=== PATIENT | female | born 1960 | race Caucasian/White ===

== ENCOUNTER 2023-10-24 09:41 | Emergency (ER) | payer OTHER, SELFPAY ==
[2023-10-24] VITALS (13 sets, daily range): BP systolic 120–150; BP diastolic 73–100; BMI 22.0
--- NOTE | 2023-10-24 10:45 | ED.MUSCINJ ---
HPI-Injury
<Sean Lieberman PA-C - Last Filed: 10/25/23 08:10>
General
Chief Complaint: Musculo-Skeletal Complaint
Source: patient
Exam Limitations: none
Time Seen by Provider: 10/24/23 10:16
History of Present Illness-Injury
Initial Injury comments:
63-year-old female presents complaining of left ankle pain and swelling after stepping on a tree stump walking her dog. [place] was [place] a trail and was helped off the trail by her . No prior injury to the ankle. She is not anticoagulated. She
is healthy other than history of hypothyroidism.
Phy Exam
<Sean Lieberman PA-C - Last Filed: 10/25/23 08:10>
Physical Exam
Physical Exam:
General: Well-appearing female
Musculoskeletal exam: Left ankle swollen tender diffusely and deformed.
Vascular: Dorsalis pedis pulse left
Neurologic: Good sensation left foot
Skin: Superficial abrasion medial aspect left ankle
Injury Course
<Sean Lieberman PA-C - Last Filed: 10/25/23 08:10>
Orders/Labs/Results
Orders:
Orders
10/24/23 10:00
Ankle, left 3 view CR [CR Ankle - Left Min 3 Views ] Urgent
Comment:
Reason For Exam: fall
10/24/23 10:56
Morphine Sulfate 4 mg IV NOW STA
Ondansetron Injectable [Zofran] 4 mg IV NOW STA
10/24/23 11:27
Propofol [Diprivan] 20 ml .ROUTE .STK-MED
10/24/23 11:48
CR Ankle - Left 2 Views Urgent
Reason For Exam: post reduction
CR Knee - Left 1 Or 2 Views Urgent
Comment:
Reason For Exam: ankle fx
10/24/23 12:29
Crutches-Treatment ONCE
<Christian Catherine MD - Last Filed: 10/24/23 11:48>
Orders/Labs/Results
Orders:
Orders
10/24/23 10:00
Ankle, left 3 view CR [CR Ankle - Left Min 3 Views ] Urgent
Comment:
Reason For Exam: fall
10/24/23 10:56
Morphine Sulfate 4 mg IV NOW STA
Ondansetron Injectable [Zofran] 4 mg IV NOW STA
10/24/23 11:27
Propofol [Diprivan] 20 ml .ROUTE .STK-MED
10/24/23 11:48
CR Ankle - Left 2 Views Urgent
Reason For Exam: post reduction
CR Knee - Left 1 Or 2 Views Urgent
Comment:
Reason For Exam: ankle fx
10/24/23 12:29
Crutches-Treatment ONCE
Procedures
<Sean Lieberman PA-C - Last Filed: 10/25/23 08:10>
Moderate Sedation
ASA Risk Score: Class II
Chart and allergies reviewed: Yes
Consent for anesthesia obtained: Yes
Time out completed (validating right patient & procedure): Yes
Moderate Sedation Start Time(when first medication is given): 11:39
History of difficult intubation: No
Airway free of obstruction: Yes
Patient has a gag reflex: Yes
Patient is able to open mouth: Yes
Patient has no dentures: Yes
Patient has no loose teeth: Yes
Medication administered by Provider during Moderate Sedation: IV Propofol (mg)
Total dose administered: 100
Time drug administered: 11:39
Moderate Sedation Procedure End Time: 11:50
<Sean Lieberman PA-C - Last Filed: 10/25/23 08:10>
MDM/Problems Addressed
Differential Diagnosis Includes:
Left ankle deformity with pain after injury. Fracture versus dislocation versus both
I personally visualized x-rays of left ankle which demonstrate a dislocated trimalleolar fracture of the left ankle. This is a closed injury she is neurologically intact.
Discussed with patient treatment options. Send x-rays to orthopedics for their review. Anticipate she may need moderate sedation with reduction.
<Sean Lieberman PA-C - Last Filed: 10/25/23 08:10>
*Critical Care Note
Total Time (30-74mins, 75-104mins- exclusive of procedures): Not Applicable
<Sean Lieberman PA-C - Last Filed: 10/25/23 08:10>
Update Note
Update Note:
Initial x-rays demonstrate dislocated trimalleolar ankle fracture. Discussed with patient and orthopedics. Orthopedics in agreement with reduction. Consent obtained for moderate sedation and closed reduction. Sedation performed by emergency room
attending. Reduction performed by myself using longitudinal traction and posterior pressure. The patient was then splinted in a posterior and U splint using cast padding 3 inch OCL and Buzz bandages. Postreduction films were obtained which
demonstrate successful reduction of the ankle.
Patient recovered well from sedation. She was trained on the crutches. She was given strict nonweightbearing instructions on the left lower extremity. She is to see orthopedics tomorrow in the office
ED Attending Note
<Sean Lieberman PA-C - Last Filed: 10/25/23 08:10>
-
Portions of this chart may have been created with voice recognition software.� Occasional wrong word or��sound alike� substitutions may have occurred due to the inherent limitations of voice recognition software.
<Christian Catherine MD - Last Filed: 10/24/23 11:48>
ED Attending Note
Patient seen and examined by attending physician: Yes
ED Attending Note:
I have seen and evaluated the patient with a amni-wh-owrf encounter. I have spoken to the advance practicer provider and involved in the medical history, the physical exam, medical decision making.
Evaluation and management service: agree unless noted differently below.
Results interpretation: agree unless noted differently below.
Focused HPI: 63-year-old female presents for left ankle injury�was walking on a trail and stepped on a tree stump and suffered inversion of the ankle had immediate pain and unable to bear weight. No other injuries.
Physical exam: Awake alert, appears in mild pain distress. Left ankle with deformity, tenderness along both malleoli. Palpable DP pulse. Brisk capillary refill. Motor and sensory function intact distal left lower extremity.
Medical Decision Makin-year-old female presents with left ankle injury. X-ray confirms trimalleolar fracture. Will sedate and reduce, splint. Orthopedic referral for definitive treatment.
Discharge Plan
Departure
Patient Disposition: Home (Routine Discharge)
Date of Disposition: 10/24/23
Time of Disposition: 12:53
Patient with high blood pressure during this ER visit?: No
Discharge Problem:
Trimalleolar fracture of ankle, closed
Instructions: Muscle and Bone Pain (DC), MODERATE SEDATION ADULT
Prescriptions:
New
hydrocodone-acetaminophen 5-300 mg tablet
1 tab PO TID PRN (Reason: Pain) Qty: 10 0RF
Referrals:
Tigre Gutiérrez MD [Active] -
Marisol Christopher DO [Family Provider] -
Activity Restrictions/Additional Instructions:
Keep splint on and dry. Elevate for swelling. Do not bear any weight on the left leg. You may use ibuprofen or Tylenol pain. Take prescribed medicine as needed for severe pain. Return here for increased pain numbness to the leg or other
concerning findings
Interventions
Interventions:
*Risk Screen - Suicide Last Done: 10/24/23 09:49
*General Assessment Last Done: 10/24/23 09:49
*Neglect/Abuse Screening Last Done: 10/24/23 09:49
ED- Fall Risk Assessment Last Done: 10/24/23 10:40
*Nursing Disposition Last Done: 10/24/23 13:14
ED-Musculoskeletal Assessment Last Done: 10/24/23 10:40
Discharge Date and Time
Discharge Date/Time: 10/24/23 13:15
Print Language: SWAZI
[2023-10-24] MEDS: MORPHINE SULFATE 4 MG IV (11:17)
[2023-10-24] MEDS: ZOFRAN 4 MG IV (11:17)
== END 2023-10-24 13:15 | disposition home or self-care (01) ==
LOC: EMR 09:41
PROVIDERS: EMERGENCY PHYSICIAN Emergency Medicine; FAMILY PHYSICIAN Family Medicine
DX: S82.852A Displaced trimalleolar fracture of left lower leg, initial encounter for closed fracture (principal); W19.XXXA Unspecified fall, initial encounter; Y93.K1 Activity, walking an animal; E03.9 Hypothyroidism, unspecified
CPT/HCPCS: 99284; 27818; 99152; 96374; 96375; 73560; 73600; 73610

== ENCOUNTER → 2023-10-27 11:33 | Outpatient (REF) | payer OTHER, SELFPAY ==
[2023-10-27 12:02] LABS: % Basophils 0.6 % (0-2); % Eosinophils 1.8 % (0-6); % Immature Granulocytes 0.2 % (0-0.5); % Lymphocytes 29.5 % (20.5-51.1); % Neutrophils 57.9 % (42.2-75.2); Absolute Eosinophils 0.1 10^3/uL (0-0.7); Absolute Lymphocytes 1.5 10^3/uL (1.2-3.4); Absolute Monocytes 0.5 10^3/uL (0.1-0.6); Absolute Neutrophils 2.9 10^3/uL (1.4-6.5); Hematocrit 37.3 % (37.0-47.0); Hemoglobin 13.2 g/dL (12.0-16.0); Mean Corp Hgb Conc. 35.4 g/dL (33.0-37.0); Mean Corpuscular Hgb 32.1 pg (27.0-31.0); Mean Corpuscular Volume 90.8 fL (81.0-99.0); Mean Platelet Volume 10.1 fL (7.4-10.4); Nucleated Red Blood Cells % 0 %; Platelet Count 233 10^3/uL (130-400); Red Blood Cell Count 4.11 10^6/uL (4.20-5.40); Red Cell Dist. Width 12.2 % (11.5-14.5); White Blood Cell Count 4.9 10^3/uL (4.8-10.8)
[2023-10-27 12:34] LABS: Blood Urea Nitrogen 18 mg/dl (7-17); Calcium 10.5 mg/dl (8.4-10.2); Carbon Dioxide 30 mmol/L (22-30); Chloride 100 mmol/L (98-107); Glucose 115 mg/dl (70-99); Potassium 5.4 mmol/L (3.5-5.1); Sodium 139 mmol/L (135-145); eGFR > 60.00
== END ==
LOC: REG 11:33
PROVIDERS: ATTENDING PHYSICIAN Student in an Organized Health Care Education/Training Program; FAMILY PHYSICIAN Family Medicine
DX: Z01.818 Encounter for other preprocedural examination (principal)
CPT/HCPCS: 36415; 80048; 85025; 93005

== ENCOUNTER → 2023-11-30 10:47 | Outpatient (REF) | payer OTHER, SELFPAY | LOC: HWRAD 10:47 | PROVIDERS: ATTENDING PHYSICIAN Family Medicine | DX: S82.892D Other fracture of left lower leg, subsequent encounter for closed fracture with routine healing (principal) | CPT/HCPCS: 77080 ==

== ENCOUNTER → 2024-05-21 15:23 | Outpatient (REF) | payer OTHER, SELFPAY ==
[2024-05-21 16:28] LABS: % Basophils 0.6 % (0-2); % Eosinophils 1.5 % (0-6); % Immature Granulocytes 0.2 % (0-0.5); % Lymphocytes 31.3 % (20.5-51.1); % Monocytes 7.3 % (1.7-9.3); % Neutrophils 59.1 % (42.2-75.2); Absolute Eosinophils 0.1 10^3/uL (0-0.7); Absolute Lymphocytes 1.5 10^3/uL (1.2-3.4); Absolute Monocytes 0.4 10^3/uL (0.1-0.6); Absolute Neutrophils 2.8 10^3/uL (1.4-6.5); Hematocrit 36.5 % (37.0-47.0); Hemoglobin 12.5 g/dL (12.0-16.0); Mean Corp Hgb Conc. 34.2 g/dL (33.0-37.0); Mean Corpuscular Volume 93.4 fL (81.0-99.0); Mean Platelet Volume 9.9 fL (7.4-10.4); Nucleated Red Blood Cells % 0 %; Platelet Count 234 10^3/uL (130-400); Red Blood Cell Count 3.91 10^6/uL (4.20-5.40); Red Cell Dist. Width 12.6 % (11.5-14.5); White Blood Cell Count 4.8 10^3/uL (4.8-10.8)
[2024-05-21 16:40] LABS: Blood Urea Nitrogen 17 mg/dl (7-17); Calcium 9.8 mg/dl (8.4-10.2); Carbon Dioxide 28 mmol/L (22-30); Chloride 100 mmol/L (98-107); Glucose 96 mg/dl (70-99); Potassium 4.2 mmol/L (3.5-5.1); Sodium 137 mmol/L (135-145); eGFR > 60.00
== END ==
LOC: REG 15:23
PROVIDERS: ATTENDING PHYSICIAN Student in an Organized Health Care Education/Training Program
DX: Z01.818 Encounter for other preprocedural examination (principal)
CPT/HCPCS: 36415; 80048; 85025; 93005